=== PATIENT | female | born 1985 | race Caucasian/White ===

== ENCOUNTER 2021-11-21 10:23 | Emergency (ER) | payer OTHER ==
[~2021-11-21] VITALS: Ht 165.1 cm; Wt 62.0 kg
[2021-11-21 10:31] VITALS: BP 121/66
[2021-11-21] MEDS ORDERED: BACITRACIN 15GM TUBE TOP ONE (10:45)
[2021-11-21] MEDS ORDERED: HYDROCODONE/ACETAMINOPHEN 5/325MG TABLET PO ONE (10:45)
[2021-11-21] MEDS ORDERED: T3 PO (10:49)
== END 2021-11-21 11:42 | disposition home or self-care (01) ==
LOC: ER 10:23
DX: T23.102A Burn of first degree of left hand, unspecified site, initial encounter (principal); T31.0 Burns involving less than 10% of body surface; X18.XXXA Contact with other hot metals, initial encounter; Y93.89 Activity, other specified; Y92.89 Other specified places as the place of occurrence of the external cause; Y99.8 Other external cause status; Z98.51 Tubal ligation status
CPT/HCPCS: 16000; 99283